=== PATIENT | male | born 1975 | race Caucasian/White ===

== ENCOUNTER 2019-03-17 10:41 | Emergency (ER) | payer MEDICAID ==
[~2019-03-17] VITALS: Ht 160 cm; Wt 60.8 kg
[~2019-03-17 10:41] MED LIST: ACET-2619; SYN.1; [UNRECOGNIZED DRUG - CODE]
--- NOTE | 2019-03-17 10:43 | NUR ---
Patient transferred to bed 7 via wheelchair. RN evaluating patient at bedside.
[2019-03-17 10:52] VITALS: BP 115/75
--- NOTE | 2019-03-17 10:59 | NUR ---
Dr. Diane evaluating patient at bedside.
[2019-03-17] MEDS ORDERED: LORazepam 2 MG/ML VIAL IVP ONE (11:10)
[2019-03-17 11:44] LABS: BASOPHILS % (AUTO) 0.2 % (0.0-2.0); HEMATOCRIT 46.7 % (36-52); HEMOGLOBIN 15.6 g/dL (12.0-18.0); LYMPHOCYTES # (AUTO) 1.2 K/uL (2.0-11.5); LYMPHOCYTES % (AUTO) 10.6 % (20.5-51.1); MEAN CORPUSCULAR HEMOGLOBIN 33 pg (27-31); MEAN CORPUSCULAR HGB CONC 33 g/dL (33-37); MEAN CORPUSCULAR VOLUME 99.7 fL (80-94); MONOCYTES # (AUTO) 0.4 K/uL (0.8-1.0); MONOCYTES % (AUTO) 3.3 % (1.7-9.3); NEUTROPHILS # (AUTO) 9.4 K/uL (1.8-7.7); NEUTROPHILS % (AUTO) 85.9 % (42.2-75.2); PLATELET COUNT (AUTO) 266 K/uL (140-450); RED BLOOD CELL COUNT(AUTO) 4.69 MIL/uL (4.20-6.10); RED CELL DISTRIBUTION WIDTH 14.8 % (11.6-13.7); WHITE BLOOD COUNT (AUTO) 10.9 K/uL (4.8-10.8)
--- NOTE | 2019-03-17 11:45 | NUR ---
PT BIB CAREGIVER WITH C/O SEIZURE LIKE ACTIVTY, PER CAREGIVER LASTING APPROXIMATELY 1 MIN. NO TRAUMA NOTED TO MOUTH. CAREGIVER REPORTS ADDITIONAL FALL THIS MORNING, CAREGIVER REPORTS CATCHING PT BEFORE FALL AND ASSISTING PT TO FLOOR. NO INJURIES REPORTED. CAREGIVER AT BEDSIDE. SEIZURE PRECAUTIONS IN PLACE. BED RAILS UP X2. VSS. SUCTION AT BEDSIDE. HX: DOWN SYNDROME, ENUCLEASION OF RIGHT EYE, BLIND IN LEFT EYE RX: DONEZEPIL, LEVOTHYROXINE
--- NOTE | 2019-03-17 11:55 | NUR ---
Patient taken to CT scan via gurney by [employer].
--- NOTE | 2019-03-17 12:08 | NUR ---
PT RETURNED FROM CT
[2019-03-17 12:11] LABS: PROTHROMBIN TIME 10.1 secs (10.8-13.4)
[2019-03-17 12:48] LABS: POTASSIUM 3.9 mmol/L (3.5-5.1)
[2019-03-17 12:49] LABS: ALBUMIN 3.6 g/dL (3.4-5.0); ANION GAP 12.8 (8-16); CARBON DIOXIDE 29.1 mmol/L (21-32); CREATININE 1.2 mg/dL (0.7-1.3); THYROID STIMULATING HORMONE 3.19 uIU/mL (0.34-3.74); TOTAL BILIRUBIN 0.5 mg/dL (0.0-1.0)
[2019-03-17 13:40] LABS: APPEARANCE,URINE HAZY (CLEAR); BILIRUBIN,URINE NEGATIVE (NEGATIVE); BLOOD, URINE 2+ (NEGATIVE); COLOR,URINE YELLOW (YELLOW); LEUKOCYTE ESTERASE ,URINE NEGATIVE (NEGATIVE); NITRITE, URINE NEGATIVE (NEGATIVE); UGLUCOSE NEGATIVE (NEGATIVE)
[2019-03-17 13:46] LABS: BARBITURATE, URINE NEG. ng/ml (NEG <=200); BENZODIAZEPINE, URINE NEG. ng/mL (NEG <=200); CANNABINOID, URINE NEG. ng/mL (NEG <=50); COCAINE, URINE NEG. ng/mL (NEG <=300); OPIATE, URINE NEG. ng/mL (NEG <=2000); PHENCYCLIDINE SCREEN,URINE NEG. ng/mL (NEG <=25)
[2019-03-17 13:52] LABS: WBC,URINE 0-5 /HPF (0-5)
[2019-03-17 14:50] VITALS: BP 107/73
--- NOTE | 2019-03-17 14:50 | NUR ---
Patient discharged with v/s stable. Written and verbal after care instructions given and explained. Patient verbalized understanding. Pt taken out by caregiver via wheelchair. All questions addressed prior to discharge. Advised to follow up with PMD.
== END 2019-03-17 14:50 ==
LOC: MED 10:41
DX: R56.9 Unspecified convulsions (principal); E03.9 Hypothyroidism, unspecified; F73 Profound intellectual disabilities; Z98.890 Other specified postprocedural states; Z79.899 Other long term (current) drug therapy
CPT/HCPCS: 36415; 70450; 71045; 80053; 80305; 81001; 83605; 83735; 84443; 84484; 85025; 85610; 85730; 87086; 93005; 96374; 99284; J2060; Q0092; C1758